=== PATIENT | male | born 1950 | race Two or more races ===

== ENCOUNTER 2025-10-04 19:15 | Inpatient (IN) | payer OTHER, MEDICAID ==
[~2025-10-04] VITALS: Ht 180.3 cm; Wt 93.4 kg
[2025-10-04 19:25] VITALS: TEMP 103.2
[2025-10-04 19:48] LABS: ABG BASE EXCESS 2.3 mmol/L (-2.0-3.0); ABG OXYGEN SATURATION 93.2 % (94.0-98.0); ABG PCO2 35.7 mmHg (35.0-48.0); ABG PH 7.475 (7.350-7.450); ABG PO2 64.1 mmHg (83.0-108.0); ABG TOTAL HEMOGLOBIN 13.0 G/dL (13.5-17.5); FLOW, BLOOD GAS 3.00 L/min (0.00-30.00); SITE, ABG RIGHT RADIAL
[2025-10-04 19:51] LABS: PLATELET COUNT (AUTO) 135 K/uL (150-450); RED BLOOD CELL COUNT(AUTO) 3.92 MIL/uL (4.5-6.0); RED CELL DISTRIBUTION WIDTH 13.6 % (11.5-15.0); WHITE BLOOD COUNT (AUTO) 5.2 K/uL (4.3-11.0)
[2025-10-04 19:57] LABS: CALCIUM, SERUM 9.4 mg/dL (8.5-10.1); CREATININE 2.0 mg/dL (0.6-1.3); SODIUM SERUM 135 mmol/L (136-145); UREA NITROGEN, BLOOD 25 mg/dL (7-18)
[2025-10-04 20:04] LABS: INR 1.16 (0.91-1.10)
[2025-10-04 20:05] LABS: LACTIC ACID 1.4 mmol/L (0.4-2.0)
[2025-10-04 20:11] LABS: ASPARTATE AMINOTRANSFERASE 29 U/L (15-37); TOTAL PROTEIN, SERUM 8.1 g/dL (6.4-8.2)
[2025-10-04 20:25] VITALS: O2SAT 100
[2025-10-04] MEDS: IPRATROPIUM NEB FS 0.5 MG/2.5 ML AMPUL.NEB NEB ONE (20:25)
[2025-10-04] MEDS: ALBUTEROL FS 2.5 MG/3 ML VIAL.NEB CONTNEB ONE (20:25)
[2025-10-04] MEDS ORDERED: ALBUTEROL FS 2.5 MG/3 ML VIAL.NEB ONE (20:29)
[2025-10-04] MEDS ORDERED: MAG HYDROX/AL HYDROX/SIMETH 30 ML UDC PO PRN (20:30)
[2025-10-04] MEDS ORDERED: ACETAMINOPHEN 325 MG TABLET PO PRN (20:30)
[2025-10-04] MEDS ORDERED: OSELTAMIVIR PHOSPHATE 75 MG CAPSULE PO SCH (20:30)
[2025-10-04] MEDS ORDERED: ONDANSETRON HCL/PF 4 MG/2 ML VIAL IVP PRN (20:30)
[2025-10-04] MEDS ORDERED: IPRATROPIUM NEB FS 0.5 MG/2.5 ML AMPUL.NEB ONE (20:30)
[2025-10-04] MEDS ORDERED: MAGNESIUM HYDROXIDE 30 ML UDC PO PRN (20:30)
[2025-10-04] MEDS ORDERED: APIXABAN 5 MG TABLET PO SCH (20:30)
[2025-10-04 21:18] LABS: LYMPHOCYTES % (MANUAL) 15 % (16-48); MONOCYTES % (MANUAL) 13 % (0-11.0); NEUTROPHILS % (MANUAL) 72 (42-76); PLATELET ESTIMATE ADEQUATE
[2025-10-04 21:25] VITALS: O2SAT 100; O2SAT 99
[2025-10-04] MEDS ORDERED: LEVOFLOXACIN 500 MG /D5W 100ML 500 MG in PREMIX 1 EA IV SCH (21:30)
[2025-10-04 22:03] LABS: CREATINE KINASE, TOTAL 414.0 U/L (39-308)
[2025-10-04] MEDS ORDERED: LEVOFLOXACIN 750 MG /D5W 150ML 750 MG in PREMIX 1 EA IV STA (22:54)
[2025-10-04] MEDS ORDERED: IV NS 0.9% 1,000 ML BAG IV STA (23:17)
[2025-10-05] MEDS ORDERED: LEVOFLOXACIN 500 MG /D5W 100ML 100 ML IV ONE
[2025-10-05] MEDS ORDERED: OSELTAMIVIR PHOSPHATE 75 MG CAPSULE PO ONE
[2025-10-05 00:25] VITALS: BP 121/50; O2SAT 94
[2025-10-05] MEDS ORDERED: IPRATROPIUM NEB FS 0.5 MG/2.5 ML AMPUL.NEB NEB PRN (02:00)
[2025-10-05] MEDS ORDERED: DEXTROSE 50%-WATER 50 ML DISP.SYRIN IV PRN (02:00)
[2025-10-05] MEDS ORDERED: ACETYLCYSTEINE 10% SOLN 400 MG/4 ML VIAL NEB SCH (02:00)
[2025-10-05] MEDS ORDERED: ALBUTEROL HALF STRENGTH 1.25 MG/3 ML VIAL.NEB NEB PRN (02:00)
[2025-10-05] MEDS ORDERED: IV NS 0.9% 1,000 ML IV PRN (02:00)
[2025-10-05] MEDS ORDERED: INSULIN REGULAR, HUMAN 100 UNIT/ML 3 ML VIAL SQ PRN (02:00)
[2025-10-05] MEDS ORDERED: IPRATROPIUM NEB FS 0.5 MG/2.5 ML AMPUL.NEB NEB SCH (03:30)
[2025-10-05] MEDS ORDERED: ALBUTEROL HALF STRENGTH 1.25 MG/3 ML VIAL.NEB NEB SCH (03:30)
[2025-10-05] MEDS ORDERED: BLOOD SUGAR DIAGNOSTIC 1 EACH STRIP IN SCH (07:30)
[2025-10-05] MEDS ORDERED: OSELTAMIVIR PHOSPHATE 30 MG CAPSULE PO SCH (09:00)
[2025-10-06] MEDS ORDERED: LEVOFLOXACIN 250 MG /D5W 50 ML 50 ML IV SCH
== END 2025-10-05 02:45 | disposition short-term general hospital (02) | DRG 177 ==
LOC: ER 19:20 → MEDSG1 22:28 → TELE-TD 22:46
PROVIDERS: ADMIT Nurse Practitioner Acute Care; ATTEND Nurse Practitioner Acute Care
DX: U07.1 COVID-19 (principal); I21.A1 Myocardial infarction type 2; J11.00 Influenza due to unidentified influenza virus with unspecified type of pneumonia; J96.01 Acute respiratory failure with hypoxia; N17.0 Acute kidney failure with tubular necrosis; I10 Essential (primary) hypertension; E11.9 Type 2 diabetes mellitus without complications; E87.1 Hypo-osmolality and hyponatremia; Z20.822 Contact with and (suspected) exposure to COVID-19; Z79.51 Long term (current) use of inhaled steroids
CPT/HCPCS: 36415; 36600; 70450-TC; 71045-TC; 71250-TC; 80048-TC; 80076-TC; 82550-TC; 82553; 82803-TC; 83605-TC; 83615-TC; 84484-TC; 85027-TC; 85378-TC; 85730-TC; 86140-TC; 87040-TC; G0378; J1815; J1956; J2919